=== PATIENT | male | born 1995 | race African-American/Black ===

== ENCOUNTER 2021-08-06 09:06 | Emergency (ER) | payer MEDICAID, OTHER ==
[~2021-08-06] VITALS: Ht 167.6 cm; Wt 63.0 kg
[2021-08-06] MEDS ORDERED: HYDROCODONE/ACETAMINOPHEN 5/325MG TABLET PO ONE (09:30)
[2021-08-06] MEDS ORDERED: IBUPROFEN 600MG TABLET PO ONE (09:30)
[2021-08-06] MEDS ORDERED: BACITRACIN ZINC OINT UDPKT TOP ONE (10:00)
[2021-08-06] MEDS ORDERED: BO1 TP (10:46)
[2021-08-06] MEDS ORDERED: IBUP-2029 MT (10:46)
[2021-08-06 10:59] VITALS: BP 128/60
== END 2021-08-06 11:01 | disposition home or self-care (01) ==
LOC: ER 09:20
DX: S81.012A Laceration without foreign body, left knee, initial encounter (principal); W01.110A Fall on same level from slipping, tripping and stumbling with subsequent striking against sharp glass, initial encounter; Y93.89 Activity, other specified; Y92.9 Unspecified place or not applicable; Z98.890 Other specified postprocedural states
CPT/HCPCS: 99284; Z7610